=== PATIENT | female | born 1995 | race African-American/Black ===

== ENCOUNTER 2017-10-30 22:06 | Inpatient (IN) ==
[2017-10-30] MEDS ORDERED: PENICILLIN G POTASSIUM 5,000,000 UNIT VIAL ONE (22:18)
[2017-10-30] MEDS ORDERED: SODIUM CHLORIDE 0.9% 100 ML IV ONE (22:19)
[2017-10-30] MEDS: LACTATED RINGERS 1,000 ML IV SCH (22:21)
[2017-10-30] MEDS ORDERED: LIDOCAINE 1% 50 ML VIAL ONE (22:22)
[2017-10-30] MEDS: PENICILLIN G POTASSIUM INJ 5,000,000 UNIT in SODIUM CHLORIDE 0.9% 100 ML IV ONE ×2 (22:22→22:58)
[2017-10-30] MEDS ORDERED: BUTORPHANOL 2 MG/ML VIAL ONE (22:22)
[2017-10-30] MEDS ORDERED: miSOPROStol 200 MCG TABLET ONE (22:23)
[2017-10-30] MEDS ORDERED: OXYTOCIN/LR 20 UNIT/1,000 ML BAG IV ONE ×3 (22:23→23:00)
[2017-10-30] MEDS ORDERED: ONDANSETRON 4 MG/2 ML VIAL ONE (22:23)
[2017-10-30] MEDS ORDERED: ONDANSETRON 4 MG/2 ML VIAL IV PRN (22:35)
[2017-10-30] MEDS ORDERED: BUTORPHANOL 2 MG/ML VIAL IV PRN (22:35)
[2017-10-30 22:44] LABS: Basophils # 0.1 10*3/uL (0.0-0.2); Basophils % 0.4 % (0.0-0.8); Eosinophils # 0.1 10*3/uL (0.0-0.87); Eosinophils % 0.8 % (0.00-10.9); Hematocrit 33.9 VOL% (35.7-47.0); Hemoglobin 10.2 GM/DL (12.0-16.0); Immature Granulocytes % 0.8 %; Lymphocytes % 22.4 % (21.3-54.2); Mean Corpuscular HGB Conc 30.1 GM/DL (32-36); Mean Corpuscular Hemoglobin 23 PG (27-34); Mean Corpuscular Volume 75.3 FL (87-102); Monocytes # 0.9 10*3/uL (0.11-0.8); Monocytes % 7.1 % (1.7-12.7); Neutrophils # 9.1 10*3/uL (1.4-7.4); Neutrophils % 68.5 % (38.7-73.9); Platelet Count 147 T/CUMM (130-400); Red Cell Distribution Width 16.6 % (9.3-17.3); White Blood Count 13.2 T/CUMM (4-12)
[2017-10-30 23:04] LABS: Alanine Aminotransferase 14 U/L (13-56); Albumin 2.6 G/DL (3.4-5.0); Alkaline Phosphatase 152 U/L (45-117); Aspartate Amino Transferase 23 U/L (0-37); Bilirubin,Total < 0.39 MG/DL (0.2-1.0); Blood Urea Nitrogen 8 MG/DL (7-18); Calcium 9.1 MG/DL (8.5-10.1); Glucose 95 MG/DL (74-106); Osmolality,Calculated 274.5 MOS/KG (273-304); Potassium 3.6 MMOL/L (3.5-5.1); Sodium 139 MMOL/L (136-145); Total Protein 7.5 G/DL (6.4-8.3)
[2017-10-31] MEDS ORDERED: MEASLES/MUMPS/RUBELLA VACCINE 0.5 ML VIAL SUBCUT ONE (02:40)
[2017-10-31] MEDS ORDERED: WITCH HAZEL PADS 100/JAR TOP PRN (02:40)
[2017-10-31] MEDS ORDERED: DIPH/TET/ACEL PERT BOOSTER VACCINE 0.5 ML VIAL IM ONE (02:40)
[2017-10-31] MEDS ORDERED: BENZOCAINE 20%/MENTHOL 0.5% SPRAY 56 GM CAN TOP PRN (02:40)
[2017-10-31] MEDS ORDERED: BISACODYL 10 MG SUPP RECTAL PRN (02:40)
[2017-10-31] MEDS ORDERED: LANOLIN 50% CREAM 0.3 OZ TUBE TOP PRN (02:40)
[2017-10-31] MEDS ORDERED: HYDROCORTISONE 2.5% RECTAL CREAM 30 GM TUBE TOP PRN (02:40)
[2017-10-31] MEDS ORDERED: ACETAMINOPHEN 325 MG TABLET PO PRN (02:40)
[2017-10-31] MEDS: IBUPROFEN 800 MG TABLET PO SCH ×3 (02:47→18:18)
[2017-10-31] MEDS ORDERED: RHO(D) IMMUNE GLOBULIN 300 MCG SYRINGE IM ONE (03:00)
[2017-10-31 05:56] LABS: Basophils % 0.2 % (0.0-0.8); Eosinophils # 0.1 10*3/uL (0.0-0.87); Eosinophils % 0.5 % (0.00-10.9); Hematocrit 28.3 VOL% (35.7-47.0); Hemoglobin 8.7 GM/DL (12.0-16.0); Immature Granulocytes % 0.5 %; Immature Granulocytes Absolute 0.08 #; Lymphocytes # 2.1 10*3/uL (1.4-4.0); Lymphocytes % 13.6 % (21.3-54.2); Mean Corpuscular HGB Conc 30.7 GM/DL (32-36); Mean Corpuscular Hemoglobin 23 PG (27-34); Mean Corpuscular Volume 74.9 FL (87-102); Monocytes % 6.5 % (1.7-12.7); Neutrophils # 12.3 10*3/uL (1.4-7.4); Neutrophils % 78.7 % (38.7-73.9); Red Blood Count 3.78 MC/CUMM (3.8-5.5); Red Cell Distribution Width 16.6 % (9.3-17.3); White Blood Count 15.6 T/CUMM (4-12)
[2017-10-31 06:02] LABS: Platelet Count 115 T/CUMM (130-400)
[2017-10-31] MEDS: DOCUSATE SODIUM 100 MG CAPSULE PO SCH ×2 (09:09→21:26)
[2017-10-31] MEDS: LACTATED RINGERS 1,000 ML IV SCH (21:38)
[2017-11-01] MEDS: IBUPROFEN 800 MG TABLET PO SCH ×2 (03:28→12:04)
[2017-11-01] MEDS: LACTATED RINGERS 1,000 ML IV SCH (03:54)
[2017-11-01 07:23] VITALS: BP 106/69
[2017-11-01] MEDS: DOCUSATE SODIUM 100 MG CAPSULE PO SCH (09:42)
== END 2017-11-01 12:00 | disposition home or self-care (01) | DRG 560 ==
LOC: N.LDOUT 22:06 → N.LD 22:08 → N.OB 10-31 02:15
PROVIDERS: ADMIT Obstetrics & Gynecology; ATTEND Obstetrics & Gynecology